=== PATIENT | female | born 1975 | race Caucasian/White ===

== ENCOUNTER 2016-07-25 17:32 | Emergency (ER) | payer OTHER, MEDICARE ==
[~2016-07-25] VITALS: Ht 177.8 cm; Wt 120.0 kg
[~2016-07-25 17:32] MED LIST: AUGM875T PO; BUME1TAB PO; FORT500T3 PO; IMIT25TA PO; LYRI150C PO; MILN100 PO; OMPR20CCR PO; PERC7.5T13 PO; PROP20TA24 PO; SYNT75TA PO; TRAZ50TA4 PO; WELL150T PO; ZOFR4TAB PO
[2016-07-25 17:40] VITALS: BP 201/130; PULSE 71; RESP 40; TEMP 98.2; O2SAT 99
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
[2016-07-25 18:05] VITALS: BP 176/84; PULSE 74; RESP 32; O2SAT 99
[2016-07-25] MEDS ORDERED: ZOFR4TAB PO (18:51)
[2016-07-25] MEDS ORDERED: BUPR150CR PO (18:51)
[2016-07-25] MEDS ORDERED: CLON.5 PO (18:51)
[2016-07-25] MEDS ORDERED: PROP40TA3 PO (18:51)
[2016-07-25] MEDS ORDERED: LYRI150C PO (18:51)
[2016-07-25] MEDS ORDERED: PROM25TA5 PO (18:51)
[2016-07-25] MEDS ORDERED: METF500T PO (18:51)
[2016-07-25] MEDS ORDERED: PRIL20TA2 PO (18:51)
[2016-07-25] MEDS ORDERED: LEVO1CAP4 PO (18:51)
[2016-07-25] MEDS ORDERED: BUME1TAB26 PO (18:51)
[2016-07-25] MEDS ORDERED: PERC7.5T13 PO (18:51)
[2016-07-25] MEDS ORDERED: TRAZ100T4 PO (18:51)
[2016-07-25] MEDS ORDERED: IMIT25TA PO (18:51)
[2016-07-25] MEDS ORDERED: ORPHENADRINE INJ 60 MG/2 ML AMP IM ONE (19:00)
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
[2016-07-25] MEDS ORDERED: ROBA750T PO (20:14)
[2016-07-25 20:23] VITALS: PULSE 89; RESP 18; O2SAT 97
== END 2016-07-25 21:33 | disposition home or self-care (01) ==
LOC: NEPA 17:32
DX: S16.1XXA Strain of muscle, fascia and tendon at neck level, initial encounter (principal); M79.7 Fibromyalgia; F43.10 Post-traumatic stress disorder, unspecified; F41.8 Other specified anxiety disorders; I10 Essential (primary) hypertension; Z72.0 Tobacco use; E11.9 Type 2 diabetes mellitus without complications; Z79.4 Long term (current) use of insulin; V89.2XXA Person injured in unspecified motor-vehicle accident, traffic, initial encounter; Y93.9 Activity, unspecified; Y92.9 Unspecified place or not applicable
CPT/HCPCS: 72040; 84703; 96372; 99284; J2360

== ENCOUNTER → 2016-12-29 | Outpatient (CLI) | payer MEDICARE ==
[~2016-12-29] MED LIST changes: -AUGM875T PO; -BUME1TAB PO; +BUME1TAB26 PO; +BUPR150CR PO; +CLON.5 PO; -FORT500T3 PO; +LEVO1CAP4 PO; +METF500T PO; -MILN100 PO; -OMPR20CCR PO; +PRIL20TA2 PO; +PROM25TA5 PO; -PROP20TA24 PO; +PROP40TA3 PO; +ROBA750T PO; -SYNT75TA PO; +TRAZ100T4 PO; -TRAZ50TA4 PO; -WELL150T PO
[2016-12-29 13:15] LABS: ANION GAP 5 MEQ/L (5-15); AST (GOT) 10 U/L (15-37); BICARBONATE 28.7 MEQ/L (21.0-32.0); BLOOD UREA NITROGEN 10 MG/DL (7-18); CHLORIDE 103 MEQ/L (98-107); GLOMERULAR FILTRATION RATE 75 ML/MIN (>89); GLUCOSE,FASTING 81 MG/DL (74-99); POTASSIUM 3.6 MEQ/L (3.5-5.1); SODIUM (NA) 137 MEQ/L (136-145)
[2016-12-29 13:22] LABS: AUTOMATED NEUTROPHIL # 6.6 TH/MM3 (1.8-7.7); BASOPHIL # 0.1 TH/MM3 (0-0.2); BASOPHIL % 0.8 % (0.0-2.0); EOSINOPHIL # 0.2 TH/MM3 (0-0.4); EOSINOPHIL % 1.7 % (0.0-4.0); HEMO FLAGS DIFF FINAL; LYMPHOCYTE # 1.9 TH/MM3 (1.0-4.8); MEAN CELL VOLUME 74.6 FL (80.0-100.0); MEAN CORPUSCULAR HEMOGLOBIN 23.7 PG (27.0-34.0); MEAN CORPUSCULAR HGB CONC 31.8 % (32.0-36.0); MONO % 7.1 % (0.0-8.0); NEUT % 70.4 % (16.0-70.0); PLATELET COUNT 296 TH/MM3 (150-450); RED BLOOD COUNT 5.09 MIL/MM3 (4.00-5.30); RED CELL DISTRIBUTION WIDTH 16.6 % (11.6-17.2); WHITE BLOOD COUNT 9.4 TH/MM3 (4.0-11.0)
[2016-12-29 13:28] LABS: ALKALINE PHOSPHATASE 58 U/L (45-117); ALT (GPT) 13 U/L (10-53); LDL CHOLESTEROL 140 MG/DL (0-99); TOTAL BILIRUBIN ADULT 0.3 MG/DL (0.2-1.0)
[2016-12-29 17:32] LABS: HEMOGLOBIN A1a 1.3 %; HEMOGLOBIN Ao 84.9 %; HEMOGLOBIN F 1.2 %; HEMOGLOBIN LA1C 1.9 %; HEMOGLOBIN P3 3.5 %
== END ==
LOC: PLAB 11:10
PROVIDERS: ATTEND Family Medicine
DX: I10 Essential (primary) hypertension (principal); E11.9 Type 2 diabetes mellitus without complications; E03.9 Hypothyroidism, unspecified; M79.7 Fibromyalgia
CPT/HCPCS: 36415; 80053; 80061; 83036; 84443; 85025

== ENCOUNTER → 2017-07-20 | Outpatient (CLI) | payer MEDICARE ==
[2017-07-20 16:56] LABS: AUTOMATED NEUTROPHIL # 5.9 TH/MM3 (1.8-7.7); BASOPHIL # 0.1 TH/MM3 (0-0.2); BASOPHIL % 0.8 % (0.0-2.0); EOSINOPHIL # 0.1 TH/MM3 (0-0.4); EOSINOPHIL % 1.1 % (0.0-4.0); HEMATOCRIT 38.5 % (35.0-46.0); HEMOGLOBIN 12.6 GM/DL (11.6-15.3); LYMPH % 20.3 % (9.0-44.0); LYMPHOCYTE # 1.7 TH/MM3 (1.0-4.8); MEAN CELL VOLUME 77.1 FL (80.0-100.0); MEAN CORPUSCULAR HEMOGLOBIN 25.2 PG (27.0-34.0); MEAN CORPUSCULAR HGB CONC 32.7 % (32.0-36.0); MEAN PLATELET VOLUME 8.9 FL (7.0-11.0); MONO % 5.9 % (0.0-8.0); MONOCYTE # 0.5 TH/MM3 (0-0.9); NEUT % 71.9 % (16.0-70.0); PLATELET COUNT 294 TH/MM3 (150-450); RED CELL DISTRIBUTION WIDTH 19.2 % (11.6-17.2); WHITE BLOOD COUNT 8.2 TH/MM3 (4.0-11.0)
[2017-07-20 17:01] LABS: ALBUMIN 3.1 GM/DL (3.4-5.0); ALT (GPT) 14 U/L (10-53); AST (GOT) 10 U/L (15-37); BLOOD UREA NITROGEN 8 MG/DL (7-18); CALCIUM 8.1 MG/DL (8.5-10.1); CHLORIDE 106 MEQ/L (98-107); CHOLESTEROL 202 MG/DL (120-200); CREATININE 0.86 MG/DL (0.50-1.00); GLOMERULAR FILTRATION RATE 72 ML/MIN (>89); GLUCOSE,FASTING 79 MG/DL (74-99); SODIUM (NA) 141 MEQ/L (136-145)
[2017-07-20 17:06] LABS: ALKALINE PHOSPHATASE 56 U/L (45-117); LDL CHOLESTEROL 150 MG/DL (0-99); TOTAL BILIRUBIN ADULT 0.2 MG/DL (0.2-1.0); TOTAL PROTEIN 7.1 GM/DL (6.4-8.2); TRIGLYCERIDES 51 MG/DL (42-150)
[2017-07-20 21:48] LABS: HEMOGLOBIN A1C 5.4 % (4.3-6.0)
== END ==
LOC: PLAB 12:58
PROVIDERS: ATTEND Family Medicine
DX: M54.9 Dorsalgia, unspecified (principal); M25.561 Pain in right knee; I10 Essential (primary) hypertension; E11.9 Type 2 diabetes mellitus without complications; E55.9 Vitamin D deficiency, unspecified
CPT/HCPCS: 36415; 80053; 80061; 82306; 83036; 85025